=== PATIENT | female | born 2000 | race Caucasian/White ===

== ENCOUNTER 2023-03-05 00:03 | Emergency (ER) | payer BC, SELFPAY ==
[2023-03-05 00:07] VITALS: BP 133/77; PULSE 60; RESP 18; TEMP 36.7; O2SAT 98; BMI 50.1
--- NOTE | 2023-03-05 00:47 | EX.ED.DYSGE1 ---
HPI History of Present Illness Chief Complaint: Syncope Informant: patient, friend and EMS Narrative Narrative: Patient had a syncopal episode while at [facility] tonight. She states she has a history of POTS, she has not drank much fluid all day today, she has been feeling lightheaded off-and-on all day, worse when she is standing and better when she is sitting or resting. Tonight she was sitting in a chair, witnesses saw her go forward and collapsed onto the ground, and then subsequently had some convulsions as they describe increased tone in her upper extremities and mild clonus of them and her upper body/chest. This lasted for less than a minute. She then regained consciousness quickly after all of this and has been feeling better/fine ever since EMS was called and brought her here. She states she has pain in her upper neck, but that has been there for 1 month and feels no different tonight than it has been. She is a history of nonepileptic seizures, and states they occur occasionally, several times per year, the last one was in October, they are typically triggered by stress and she indicates that she is under a lot of stress at home recently. She does not take antiepileptics. She has been following with her doctor for the neck pain and has had advanced imaging according to her. [facility] Medical History Eosinophilic esophagitis Gastroparesis POTS (postural orthostatic tachycardia syndrome) Psychogenic nonepileptic seizure Allergy/AdvReac Type Severity Reaction Status Date / Time gluten AdvReac Abd Verified 03/05/23 00:07 cramps/diarrhea soybean AdvReac Abd Verified 03/05/23 00:07 cramps/diarrhea Social History Smoking Status: Never smoker ROS ROS ED Constitutional Constitutional ED: Denies chills or fever(s) Eyes Eyes: Denies change in vision or diplopia ENT ENT ED: Denies rhinorrhea or sore throat Cardiovascular Cardiovascular: Reports as per HPI, lightheadedness and syncope; Denies chest pain or palpitations Respiratory/Chest Respiratory/Chest: Denies cough or dyspnea Gastrointestinal Gastrointestinal: Denies abdominal pain, diarrhea, nausea or vomiting Genitourinary Genitourinary ED: Denies dysuria or hematuria Musculoskeletal Musculoskeletal: Reports neck pain; Denies back pain Integumentary Denies abscess or rash Neurologic Neurologic: Denies headache(s), paresthesias or weakness Psychiatric Psychiatric: Reports anxiety; Denies suicidal thoughts EXAM Physical Exam Const Vital Signs: 03/05/23 00:07 03/05/23 00:11 03/05/23 02:43 Temperature 98.1 F Temperature Source Temporal Pulse Rate 60 72 Respiratory Rate 18 16 Respiratory Effort Normal Non-Labored Respiratory Pattern Normal Blood Pressure 133/77 H 123/74 H Blood Pressure Mean 95 Pulse Ox 98 96 Oxygen Delivery Method Room Air 03/05/23 02:43 Temperature Temperature Source Pulse Rate 72 Respiratory Rate 16 Respiratory Effort Respiratory Pattern Blood Pressure 123/74 H Blood Pressure Mean 90 Pulse Ox 96 Oxygen Delivery Method Room Air Positive well nourished, well developed and obese Constitutional Narrative: well-appearing General Appearance ED: well developed and NAD Nutritional Appearance: obese HEENT Reports moist mucous membranes normocephalic and atraumatic Eyes PERRL and EOMs intact bilaterally Neck full ROM and supple Resp normal respiratory effort and clear to auscultation bilaterally Cardio regular rate, regular rhythm and no murmurs Rate: Negative for tachycardic GI non-tender and non-distended Auscultation: normoactive bowel sounds Palpation: soft Back/Spine no CVA tenderness General Back: other FROM Extremity normal to inspection General Extremety ED: Negative for edema, pulses abnormal or tenderness General Extremity: Negative for edema or pulses abnormal Neuro oriented x3, CN's II-XII intact bilaterally and no sensory deficits noted Sensorium / Orientation: awake and alert Motor Exam: strength 5/5 throughout Psych mental status grossly normal Skin no rashes or lesions noted and no wounds MDM MDM MDM Narrative Medical decision making narrative: During exam patient is able to sit up without feeling near syncopal or syncopal. Her vital signs are normal. She is well-appearing and in no distress with a very benign exam. She is in agreement with my impression that this is more likely to be POTS related and/or a nonepileptic episode, for which the treatment would be fluids and/or supportive care. While we place an IV in her for fluids also gave her a dose of Toradol for her neck pain. Patient better on reevaluation and no longer orthostatic and discharged with friends. Discharge Plan Triage Chief Complaint: Syncope ED Provider: [address] Dx/Rx/DC Orders Clinical Impression: Orthostatic lightheadedness, Convulsion, non-epileptic Instructions: ED Hypotension, Orthostatic Primary Care Provider: JOHANN MERCDAO Referrals: JOHANN MERCADO [Other] - As Needed Disposition Disposition: Home, Self Care Discharge Date/Time: 03/05/23 02:48
[2023-03-05] MEDS: 0.9% Normal Saline (1000mL) 1,000 ML 999 ML IV (00:57)
[2023-03-05] MEDS: Ketorolac 30 MG/ML Syringe IV (00:57)
[2023-03-05 02:43] VITALS: BP 123/74; PULSE 72; RESP 16; O2SAT 96
== END 2023-03-05 02:48 | disposition home or self-care (01) ==
PROVIDERS: Emergency Provider Emergency Medicine; Visit Provider Emergency Medicine
DX: R42 Dizziness and giddiness (principal); R56.9 Unspecified convulsions; E66.9 Obesity, unspecified
CPT/HCPCS: 96361; 96374; 99285; J7030